=== PATIENT | male | born 1965 | race Caucasian/White ===

== ENCOUNTER 2020-01-07 08:36 | Outpatient (CLI) | payer BC, SELFPAY ==
[2020-01-07 09:05] LABS: Basophils Absolute Auto 0.1 K/mm3 (0.0-0.1); Basophils Percent Auto 1.2 % (0.2-1.2); Eosinophils Absolute Auto 0.4 K/mm3 (0-0.3); Eosinophils Percent Auto 6.5 % (0-4.4); Hematocrit 49.1 % (42.0-52.0); Hemoglobin 17.4 g/dL (14.0-18.0); Immature Granulocyte Absolute 0.04 K/mm3 (0.00-0.031); Immature Granulocyte Percent A 0.6 % (0-0.5); Lymphocytes Absolute Auto 1.51 K/mm3 (0.9-3.2); Lymphocytes Percent Auto 22.8 % (18.3-44.2); Mean Corpuscular HGB Conc 35.4 g/dl (32-36); Mean Corpuscular Hemoglobin 35.2 pg (26-34); Mean Corpuscular Volume 99.2 fl (80-100); Mean Platelet Volume 9.5 fl (7.4-10.4); Monocytes Absolute Auto 0.5 K/mm3 (0.1-0.6); Monocytes Percent Auto 7.4 % (2.6-8.5); Neutrophils Absolute Auto 4.1 K/mm3 (1.3-6.7); Neutrophils Percent Auto 61.5 % (45.5-73.1); Platelet Count Result 143 k/mm3 (150-375); Red Blood Count 4.95 M/mm3 (4.6-6.20); Red Cell Distribution Width 13.9 % (11.5-14.5); White Blood Count 6.6 K/mm3 (4.5-10.0)
[2020-01-07 09:25] LABS: Alanine Aminotransferase 119 U/L (4-50); Albumin Level 4.3 g/dL (3.5-5.1); Alkaline Phosphatase 93 U/L (38-126); Anion Gap 11 mmol/L (8-16); Aspartate Amino Transferase 188 U/L (17-59); Bilirubin,Total 1.2 mg/dL (0.2-1.3); Blood Urea Nitrogen 25 mg/dL (9-20); Calcium 9.8 mg/dL (8.4-10.2); Carbon Dioxide 25 mmol/L (22-30); Chloride 100 mmol/L (98-107); Cholesterol 251 mg/dL (0-200); Estimated Glomerular Filt Rate 58; Glucose 113 mg/dL (75-110); HDL Direct 29 mg/dL; Potassium 4.1 mmol/L (3.4-5.0); Sodium 136 mmol/L (137-145); Triglycerides 236 mg/dL (<150); Uric Acid 9.3 mg/dL (3.5-8.5)
[2020-01-07 09:31] LABS: Add Urine Microscopic? YES; Appearance Urine Clear (Clear); Bacteria Urine Trace /hpf; Bilirubin Urine Negative (Negative); Blood Urine 1+ (Negative); Color Urine Amber (Yellow); Glucose Urine UA Negative (Negative); Ketones Urine Negative (Negative); Leukocyte Esterase Ur Negative LEU/UL (Negative); Mucus Urine Rare /lpf; Nitrate Urine Negative (Negative); Protein Urine 1+ mg/dL (Negative); Specific Grav Ur 1.021 (1.001-1.035); Squamous Epithelial Cell Urine Occasional /hpf (Few)
[2020-01-07 09:36] LABS: LDL Cholesterol Direct 199 mg/dL
[2020-01-07 09:55] LABS: Prostate Specific Antigen 0.8 ng/mL (< OR = 4.0)
[2020-01-07 13:33] LABS: Vitamin D 25 Hydroxy 34.8 ng/mL
== END 2020-01-07 08:37 | disposition home or self-care (01) ==
PROVIDERS: PCP Nurse Practitioner Family; Visit Provider Nurse Practitioner Family
DX: I10 Essential (primary) hypertension (principal); Z13.220 Encounter for screening for lipoid disorders; Z13.6 Encounter for screening for cardiovascular disorders; Z12.5 Encounter for screening for malignant neoplasm of prostate
CPT/HCPCS: 36415; 80053; 80061; 81001; 82306; 84153; 84443; 84550; 85025; 87086; G0103

== ENCOUNTER 2020-02-04 07:16 | Outpatient (CLI) | payer BC, SELFPAY ==
--- NOTE | ~2020-02-04 | US_ITS ---
US abdomen limited DATE: 02/04/2020 08:06 INDICATION: Elevated liver function tests TECHNIQUE: Real-time imaging of liver, pancreas, gallbladder areas COMPARISON: None FINDINGS: No hepatic or pancreatic space-occupying mass lesion is evident. Hepatic steatosis. Normal hepatopedal portal venous flow direction. No gallstones or gallbladder wall thickening or abnormal pericholecystic fluid collection. Negative s onographic Otto's sign. The common bile duct measures 3.6 mm, normal. IMPRESSION: Hepatic steatosis Reviewed, dictated and finalized at [facility]. Reviewed, dictated and finalized at [facility]. IMPRESSION: Hepatic steatosis
== END 2020-02-04 07:17 ==
PROVIDERS: Visit Provider Nurse Practitioner Family
DX: K76.0 Fatty (change of) liver, not elsewhere classified (principal); R79.89 Other specified abnormal findings of blood chemistry
CPT/HCPCS: 76705

== ENCOUNTER 2021-05-16 13:54 | Outpatient (CLI) | payer MEDICAID, SELFPAY ==
--- NOTE | ~2021-05-16 | CT_ITS ---
EXAMINATION: CT lung screening DATE: 05/16/2021 14:16 INDICATION: Nicotine dependence. Smoker. TECHNIQUE: Computed tomography (CT) of the chest was performed without intravenous contrast. The dose -length product was 360.73 mGy-cm. Automated exposure control and iterative reconstruction technique were employed. COMPARISON: None FINDINGS: There is mediastinal lymphadenopathy. For instance AP window lymph node measures 1.3 cm jaja rt axis. There is atherosclerosis of the aorta and coronary arteries. No significant pleural or peric ardial effusion. There are calcified granulomas in the right lung. There is a 2 mm nodule in the left lower lobe, image 86. There is a 4 mm right middle lobe nodule, image 70. There is focal scarring in the right lower lobe laterally. No endobronchial lesions. No pneumothorax. No focal airspace consoli dation. Mild thoracic spondylosis. There is a focus of gas in the spinal canal at the midthoracic lev el, possibly from recent instrumentation. Correlate clinically. IMPRESSION: 1. Lung-RADS category 2: Benign appearance or behavior. Continue annual screening with noncontrast lo w-dose chest CT in 12 months. Reviewed, dictated and finalized at location [facility]. AL HYGIENIST IMPRESSION: 1. Lung-RADS category 2: Benign appearance or behavior. Continue annual screeni ng with noncontrast low-dose chest CT in 12 months.
== END 2021-05-16 13:55 | disposition home or self-care (01) ==
LOC: ANHIMG 13:57
PROVIDERS: PCP Nurse Practitioner Family; Visit Provider Nurse Practitioner Family
DX: F17.210 Nicotine dependence, cigarettes, uncomplicated (principal)
CPT/HCPCS: 71271

== ENCOUNTER 2022-09-11 07:38 | Outpatient (CLI) | payer OTHER, SELFPAY ==
--- NOTE | ~2022-09-11 | CT_ITS ---
EXAMINATION: CT lung screening DATE: 09/11/2022 08:02 INDICATION: Nicotine dependence. Lung cancer screening. TECHNIQUE: Computed tomography (CT) of the chest was performed without intravenous contrast. The dose -length product was 300.95 mGy-cm. Automated exposure control and iterative reconstruction technique were employed. COMPARISON: CT dated 05/16/2021 FINDINGS: Heart size normal. There is atherosclerosis of the aorta and coronary arteries. No signific ant pleural or pericardial effusion. The upper abdomen is unremarkable. No thoracic lymphadenopathy. Stable 3 mm right middle lobe nodule. Stable 2 mm left lower lobe nodule. No focal airspace consolida tion. No pneumothorax. There are calcified pulmonary nodules, consistent with chronic granulomatous d isease. Moderate thoracic spondylosis. No focal lytic or blastic lesions. IMPRESSION: 1. Lung-RADS category 2: Benign appearance or behavior. Continue annual screening with noncontrast lo w-dose chest CT in 12 months. Reviewed, dictated and finalized at [facility]. IMPRESSION: 1. Lung-RADS category 2: Benign appearance or behavior. Continue annual screeni ng with noncontrast low-dose chest CT in 12 months.
== END 2022-09-11 07:39 | disposition home or self-care (01) ==
LOC: ANHIMG 07:42
PROVIDERS: PCP Nurse Practitioner Family; Visit Provider Nurse Practitioner Family
DX: Z12.2 Encounter for screening for malignant neoplasm of respiratory organs (principal); F17.210 Nicotine dependence, cigarettes, uncomplicated
CPT/HCPCS: 71271

== ENCOUNTER 2023-07-06 08:20 | Emergency (ER) | payer BC, SELFPAY ==
--- NOTE | ~2023-07-06 | XR_ITS ---
EXAMINATION: XR chest 2V DATE: 07/06/2023 09:26 INDICATION: Left chest pain. Shortness of breath. TECHNIQUE: Frontal and lateral views of the chest were obtained. COMPARISON: Chest CT 09/11/2022 FINDINGS: There is mild atelectasis in the lower lung zones. No pleural effusion or pneumothorax. The heart size is normal. IMPRESSION: 1. Mild atelectasis in the lower lung zones. Reviewed, dictated and finalized at location [facility]. RMATICS SCIENTIST
--- NOTE | 2023-07-06 08:23 | ECG_ITS ---
Measurements Intervals [place] Rate: 69 P: -51 NH: 182 QRS: -46 QRSD: 111 T: 47 QT: 357 QTc: 384 Interpretive Statements SINUS RHYTHM INCOMPLETE RIGHT BUNDLE BRANCH BLOCK [90+ ms QRS DURATION, TERMINAL R IN V1/V2, 40+ ms S IN I/aVL/V4/V5/V6] LEFT ANTERIOR FASCICULAR BLOCK [QRS AXIS <= -45, QR IN I, RS IN II] ABNORMAL ECG NO PREVIOUS ECG AVAILABLE FOR COMPARISON Electronically Signed On 07-06-2023 16:48:40 HOSPICE CLINICAL SUPERVISOR by Shawn Macedo M.D.
[2023-07-06 08:24] VITALS: BP 135/87; PULSE 70; RESP 16; TEMP 36.6; O2SAT 98
--- NOTE | 2023-07-06 08:24 | ECG_ITS ---
Measurements Intervals [place] Rate: 59 P: 46 RI: 208 QRS: -43 QRSD: 112 T: 42 QT: 379 QTc: 378 Interpretive Statements SINUS BRADYCARDIA LEFT ANTERIOR FASCICULAR BLOCK INCOMPLETE RIGHT BUNDLE BRANCH BLOCK [90+ ms QRS DURATION, TERMINAL R IN V1/V2, 40+ ms S IN I/aVL/V4/V5/V6] ABNORMAL ECG COMPARED TO ECG 07/06/2023 08:31:15 NO SIGNIFICANT CHANGE Electronically Signed On 07-06-2023 16:55:13 [employer]ER by Shawn Macedo M.D.
--- NOTE | 2023-07-06 08:40 | ED.CHESTPAIN ---
HPI - Chest Pain General Chief Complaint: Chest Pain Stated Complaint: CHEST TIGHTNESS X30 SECONDS ON THURSDAY Time Seen by Provider: 07/06/23 08:23 History of Present Illness HPI narrative: 58-year-old male presenting to the emergency department for evaluation chest pain. Patient states Thursday night when he walked into his kitchen the he had 30 seconds of chest pain that radiated from his chest to his left arm. Patient states he did have some ringing in the ears with this. Patient states when the chest pain resolved he felt back to normal. Patient never had symptoms similar to this prior. Patient had no symptoms on Thursday and patient denies any complaints at this time. Patient states he does have a history hypertension. Patient denies any prior history of [place]. Patient does admit to daily alcohol consumption of at least 6 beers. Patient denies any history of alcohol withdrawal. Related Data Allergies Allergy/AdvReac Type Severity Reaction Status Date / Time No Known Allergies Allergy Unknown Verified 07/06/23 08:44 Review of Systems Review of Systems: All systems reviewed & are unremarkable except as noted in HPI and below Exam Narrative: APPEARANCE: Well appearing, no pain, no distress, well-nourished. HEAD: normocephalic, atraumatic. EYES: PERRLA/EOMI, conjunctivae clear. NOSE: Normal no drainage NECK: Supple. No adenopathy, no masses. RESPIRATORY: Airway patent, respirations nonlabored. Clear to auscultation bilaterally, no rales, rhonchi, wheezing. CARDIOVASCULAR: Regular rate and rhythm without murmurs rubs or gallops. ABDOMINAL: Soft, nontender, nondistended, normal bowel sounds MUSCULOSKELETAL: Moves all extremities. Strength/ROM intact, No edema, No calf tenderness. NEURO: Alert. Cranial nerves II through XII intact. Grossly intact SKIN: Warm, dry. Normal Color Course Course Emergency Course: 58-year-old male present to the emergency department for evaluation of 30 seconds of chest pain on Thursday. Patient is afebrile with no leukocytosis and a stable hemoglobin. INR is 1.0 patient's creatinine is 1.4 which is slightly higher than his baseline. Patient was treated with IV fluids. Patient's troponins were within the normal limit and flat. EKG showed no evidence of acute STEMI. Patient family updated on results of the workup they are comfortable with the plan for discharge and close follow-up. Vital Signs Vital signs: Vital Signs Temperature 97.8 F 07/06/23 08:24 Pulse Rate 70 07/06/23 08:24 Respiratory Rate 16 07/06/23 08:24 Blood Pressure 135/87 07/06/23 08:24 Pulse Oximetry 98 07/06/23 08:24 Oxygen Delivery Room Air 07/06/23 08:24 Temperature 97.8 F 07/06/23 08:24 Pulse Rate 64 07/06/23 12:37 Respiratory Rate 15 07/06/23 12:37 Blood Pressure 133/86 07/06/23 12:37 Pulse Oximetry 100 07/06/23 12:37 Oxygen Delivery Room Air 07/06/23 08:24 MDM - Chest Pain Differential Diagnosis Differential diagnosis: Likely pneumothorax, unstable angina pectoris, atypical chest pain, st elevation myocardial infarction, costochondritis, chest pain and biliary colic Lab Data Attestation: I reviewed the patient's lab results. 07/06/23 08:46 07/06/23 08:46 Labs: Lab Results 07/06/23 07/06/23 Range/Units 08:46 11:35 WBC 6.7 (4.5-10.0) K/mm3 RBC 4.56 L (4.6-6.20) M/mm3 Hgb 14.5 (14.0-18.0) g/dL Hct 42.8 (42.0-52.0) % MCV 93.9 (80-100) fl MCH 31.8 (26-34) pg MCHC 33.9 (32-36) g/dl RDW 12.8 (11.5-14.5) % Plt Count 205 (150-375) k/mm3 MPV 10.0 (7.4-10.4) fl Immature Gran % (Auto) 0.6 H (0-0.5) % Neut % (Auto) 55.5 (45.5-73.1) % Lymph % (Auto) 30.0 (18.3-44.2) % H[place]man % (Auto) 8.7 H (2.6-8.5) % Eos % (Auto) 4.6 H (0-4.4) % Baso % (Auto) 0.6 (0.2-1.2) % Lymph # (Auto) 2.01 (0.9-3.2) K/mm3 Hickman # (Auto) 0.6 (0.1-0.6) K/mm3 Eos # (Auto) 0.3 (0-0.3) K/mm3 Bas
[2023-07-06 08:45] VITALS: BP 129/87; PULSE 131; RESP 14; O2SAT 98
[2023-07-06 08:51] LABS: Basophils Percent Auto 0.6 % (0.2-1.2); Eosinophils Absolute Auto 0.3 K/mm3 (0-0.3); Eosinophils Percent Auto 4.6 % (0-4.4); Hematocrit 42.8 % (42.0-52.0); Hemoglobin 14.5 g/dL (14.0-18.0); Immature Granulocyte Absolute 0.04 K/mm3 (0.00-0.031); Immature Granulocyte Percent A 0.6 % (0-0.5); Lymphocytes Absolute Auto 2.01 K/mm3 (0.9-3.2); Mean Corpuscular HGB Conc 33.9 g/dl (32-36); Mean Corpuscular Hemoglobin 31.8 pg (26-34); Mean Corpuscular Volume 93.9 fl (80-100); Monocytes Absolute Auto 0.6 K/mm3 (0.1-0.6); Monocytes Percent Auto 8.7 % (2.6-8.5); Neutrophils Absolute Auto 3.7 K/mm3 (1.3-6.7); Neutrophils Percent Auto 55.5 % (45.5-73.1); Platelet Count Result 205 k/mm3 (150-375); Red Blood Count 4.56 M/mm3 (4.6-6.20); Red Cell Distribution Width 12.8 % (11.5-14.5); White Blood Count 6.7 K/mm3 (4.5-10.0)
[2023-07-06] MEDS: ASPIRIN 81 MG CHEWABLE TABLET 324 MG PO (08:59)
[2023-07-06 09:06] LABS: Prothrombin Time 13.8 Seconds (11.1-14.7)
[2023-07-06 09:07] LABS: Partial Thromboplastin Time 31.5 SECONDS (22.3-36.8)
[2023-07-06 09:18] LABS: Alanine Aminotransferase 63 U/L (6-50); Albumin Level 4.2 g/dL (3.5-5.1); Alkaline Phosphatase 71 U/L (38-126); Anion Gap 9 mmol/L (8-16); Aspartate Amino Transferase 46 U/L (17-59); Bilirubin,Total 0.4 mg/dL (0.2-1.3); Blood Urea Nitrogen 24 mg/dL (9-20); Calcium 9.6 mg/dL (8.4-10.2); Carbon Dioxide 22 mmol/L (22-30); Chloride 106 mmol/L (98-107); Estimated Glomerular Filt Rate 52; Glucose 109 mg/dL (65-110); Lipase 225 U/L (23-300); Potassium 4.4 mmol/L (3.4-5.0); Sodium 137 mmol/L (137-145)
[2023-07-06 09:28] LABS: Troponin I 0.023 ng/mL (0.000-0.034)
[2023-07-06] MEDS: SODIUM CHLORIDE 0.9% IV 1,000 ML 999 ML IV CONT (10:18)
[2023-07-06 10:30] VITALS: BP 117/83; PULSE 60; RESP 16; O2SAT 100
[2023-07-06 12:06] LABS: Troponin I 0.025 ng/mL (0.000-0.034)
[2023-07-06 12:37] VITALS: BP 133/86; PULSE 64; RESP 15; O2SAT 100
== END 2023-07-06 12:39 | disposition home or self-care (01) ==
PROVIDERS: Emergency Provider Emergency Medicine; PCP Nurse Practitioner Family
DX: R07.89 Other chest pain (principal); I44.4 Left anterior fascicular block; I45.10 Unspecified right bundle-branch block; R00.1 Bradycardia, unspecified
CPT/HCPCS: 36415; 71046; 80053; 83690; 84484; 85025; 85610; 85730; 93005; 96360; 99284; A4565; A9270; J7030